=== PATIENT | male | born 1985 | race Caucasian/White ===

== ENCOUNTER 2019-08-24 15:55 | Outpatient (CLI) | payer OTHER ==
[2019-08-24 16:26] LABS: ALBUMIN 4.6 g/dL (3.2-5.5); ALBUMIN/GLOBULIN RATIO 1.7 (1.0-2.2); BILIRUBIN,TOTAL 1.2 mg/dL (0.2-1.0); CALCIUM 8.9 mg/dL (8.5-10.3); CREATININE 0.9 mg/dL (0.6-1.2); TOTAL PROTEIN 7.3 g/dL (6.7-8.2)
== END 2019-08-24 15:56 | disposition home or self-care (01) ==
LOC: LAB 15:55
PROVIDERS: ATTEND Surgery
DX: K85.10 Biliary acute pancreatitis without necrosis or infection (principal); Z01.812 Encounter for preprocedural laboratory examination
CPT/HCPCS: 36415; 80053

== ENCOUNTER 2019-08-25 07:46 | Day surgery (SDC) | payer OTHER ==
[~2019-08-25 07:46] MED LIST: CEFAZOLIN SODIUM IN 0.9 % NACL 2 GM/100 ML BAG IV ONE
[2019-08-25] MEDS ORDERED: LACTATED RINGERS 1,000 ML IV ONE ×2 (07:54→10:30)
--- NOTE | 2019-08-25 08:39 | ANESTHESIA ---
Pre-Anesthesia VS, & Labs - Diagnosis gallstone pancreatitis - Procedure laparoscopic cholecystectomy Vital Signs: Temp Pulse Resp BP Pulse Ox 36.2 C L 72 16 148/77 H 96 08/25/19 08:00 08/25/19 08:00 08/25/19 08:00 08/25/19 08:00 08/25/19 08:00 Height 5 ft 10 in Weight (kg) 92.8 kg Body Mass Index 29.0 - NPO >8 hours Home Medications and Allergies No Known Home Medications 08/08/19 Allergies/Adverse Reactions: Allergies Allergy/AdvReac Type Severity Reaction Status Date / Time No Known Drug Allergies Allergy Verified 08/25/19 08:00 Anes History & Medical History - Anesthetic History Anesthesia Complications: reports: No previous complications - Medical History Cardiovascular: reports: Murmur Pulmonary: reports: Sleep apnea (does not use cpap any more, improved since weight loss) Gastrointestinal: reports: Cholelithiasis Urinary: reports: None Neuro: reports: None Musculoskeletal: reports: None Endocrine/Autoimmune: reports: None Blood Disorders: reports: None Skin: reports: None Smoking Status: Never smoker - Surgical History Cardiothoracic: Angioplasty (valve angioplasty at [age] years old), Other Exam General: Alert Dental: WNL Mouth Opening: Greater than 4 Fingerbreadths Neck Mobility: Normal Mallampati classification: I Thyromental Distance: greater than 6 cm Cardiovascular: Regular rate, Normal S1, Normal S2 Mental/Cognitive Status: Alert/Oriented X3 Plan Anesthesia Type: General Consent for Procedure(s) Verified and Reviewed: Yes Code Status: Attempt Resuscitation ASA classification: 2-Mild systemic disease Is this case an emergency?: No
[2019-08-25] MEDS ORDERED: BUPIVACAINE 0.5% PF 10 ML VIAL ONE (08:41)
[2019-08-25] MEDS ORDERED: IOTHALAMATE MEGLUMINE 50 ML VIAL ONE (08:55)
[2019-08-25] MEDS ORDERED: GLYCOPYRROLATE 1 MG/5 ML VIAL IVP ONE (09:06)
[2019-08-25] MEDS ORDERED: ONDANSETRON 4 MG/2 ML VIAL IVP ONE (09:06)
[2019-08-25] MEDS ORDERED: NEOSTIGMINE 1 MG/1 ML 10 ML MDV IVP ONE (09:06)
[2019-08-25] MEDS ORDERED: KETOROLAC 30 MG/ML VIAL IVP ONE (09:06)
[2019-08-25] MEDS ORDERED: PROPOFOL 200 MG/20 ML VIAL IVP ONE (09:06)
[2019-08-25] MEDS ORDERED: DEXAMETHASONE 4 MG/ML VIAL IVP ONE (09:06)
[2019-08-25] MEDS ORDERED: fentaNYL 250 MCG/5 ML VIAL IVP ONE (09:06)
[2019-08-25] MEDS ORDERED: ROCURONIUM 50 MG/5 ML VIAL IVP ONE (09:06)
[2019-08-25] MEDS ORDERED: MIDAZOLAM 2 MG/2 ML VIAL IVP ONE (09:06)
[2019-08-25] MEDS ORDERED: BUPIVACAINE 0.5% PF 30 ML VIAL SUBQ ONE (09:34)
--- NOTE | 2019-08-25 11:09 | OPERATIVE REPORT ---
Operative Report - General Procedure Date: 08/25/19 Planned Procedure: Laparoscopic cholecystectomy possible intraoperative cholangiogram, possible common bile duct exploration, possible open cholecystectomy Pre-Op Diagnosis: Gallstone pancreatitis Procedure Performed: Laparoscopic cholecystectomy intraoperative cholangiogram could not be performed due to extremely small size of cystic duct Post Op Diagnosis: Same - Procedure Note Primary Surgeon: Josiah Copeland MD Anesthesia Provider: Miguel Angel Aggarwal CRNA Anesthesia Technique: General ET tube, Local IV Fluids (mL): 1,300 Estimated Blood Loss (mL): 20 Drain/Tube Type: Other (None.) Complications: None. - Other Other Information/Narrative: OPERATIVE DESCRIPTION/REPORT: After verbal and written informed consent was obtained detailing the risks of infection, bleeding requiring transfusion with its risks, nerve injury, and , as well as the possibility of a colostomy, and after I met with the patient confirming the surgery, the patient was brought to the operative suite and placed supine on the operating table. Great care was taken to avoid pressure points to prevent pressure necrosis or nerve injury. Monitoring devices were applied along with TEDs and pneumatic compressive stockings (to prevent DVT). The patient received preoperative antibiotics for surgical prophylaxis. Miguel Angel Aggarwal CRNA sedated and anesthetized the patient for the entire procedure. The patient was prepped and draped in the usual sterile manner. A "time in" then confirmed that the patient was identified with 3 identifiers (name, date and medical record number), the history and physical was in the chart, the signed consent confirming the procedure was in the chart, the patient was in the correct position, the aforementioned prophyl actic measures were in place or given, we had the correct personnel and equipment to complete the procedure and that anesthesia, surgery and nursing were given an opportunity to express any concerns. With the agreement of everyone in the room, we proceeded with the operation. The initial incision was at the umbilicus and dissection to the linea alba was completed using blunt dissection. The linea alba was grasped with a Autumn and incised. In a similar manner the peritoneum was grasped and incised using Metzenbaum scissors. In this location, a 12 mm blunt tipped, balloon tipped port was placed and the balloon was inflated to keep the port in position. The abdominal cavity was insufflated with carbon dioxide to steady-state pressure of 15 mmHg. Three additional 5 mm ports were placed in standard location for laparoscopic cholecystectomy (subxiphoid and 2 right subcostal) under direct vision of the 30 degree laparoscope and without incident. The patient was then placed in reverse Trendelenburg position and was rotated slightly to their left. The gallbladder wall was noted to be thickened and the gallbladder itself could not be grasped due to the fact that it was extraordinarily hard. I initially thought that this was due to bile and attempted to drain it with a laparoscopic needle but was only able to get out approximately 4 cc of light green-brown bile. Even with the removal of this bile, the gallbladder could not be grasped with Prestige graspers. I obtained toothed graspers that were finally able to grab a portion of the gallbladder wall and provide the necessary retraction. Also due to the distended and hard nature of the gallbladder it could not be flipped up over the liver to allow for the normal visualization. Extensive adhesions to the gallbladder and liver of the omentum also obscured by visualization. These were taken down in an avascular manner using Bovie electrocautery as well as laparoscopic scissors. Eventually, I identified the infundibulum, and this was then grasped and retracted inferior and laterally. Dissection was then begun in the angle of Calot. The cystic duct and (slightly medially and posteriorly) cystic artery were clearly identified. The critical view was obtained. There were 2 branches of the cystic artery going to the gallbladder one was tracking along with the cystic duct and once this artery was dissected free from the cystic duct it was clear that the cystic duct was less than 2 mm in size and would not allow placement of my cholangiocatheter. The third photograph taken shows the combined cystic artery and cystic duct in the critical view. The second was slightly posterior and medial to the cystic duct. Two clips proximally and one clip distally were used to control both the cystic duct and cystic arteries. The clips were carefully placed to avoid occluding the juncture with the common bile duct. Both the cystic duct and then the cystic artery were then transected with laparoscopic marianne. The gallbladder was then removed from its fossa in a retrograde fashion using electrocautery. Surprisingly, the gallbladder itself was quite extrahepatic with the only difficulty being again retraction of a very distended and hard gallbladder. With the 30 degree 5 mm scope in the subxiphoid position, the gallbladder was placed in an EndoCatch bag to be extracted through the 12 mm port site. I irrigated the right upper quadrant with a 3 L of warm sterile saline, and the area was aspirated dry. I inspected the gallbladder fossa and there was no bleeding or bile leak. Clips on the cystic duct and cystic artery appeared to be secure. I briefly visually explored the abdomen. There was no other evidence of overt pathology. I injected the port sites at the peritoneal, fascial, and skin levels under direct vision with 0.5% Marcaine. All ports and the EndoCatch containing the gallbladder were removed. Of note, the hard and distended gallbladder precluded simply removing this through the umbilical incision and the umbilical incision need to be made slightly larger at the skin and at the fascial level to allow for passage of the Endopouch containing the gallbladder. Following gallbladder removal, the remaining carbon dioxide was expelled from the abdomen. The fascia at the umbilicus was reapproximated using 2 [id number] 0 Vicryl sutures. The skin at each port site was approximated using a subcuticular 4-0 Monocryl. The surgical count of instruments, needles and sponges was reported as correct twice. Dermabond was applied. The patient was then awakened from an esthesia, extubated, and having tolerated the procedure well, was transported to the recovery room. No complications were encountered. A "time out" confirmed the operation performed, the fluids given, the estimated blood loss and anesthesia, surgery and nursing were given an opportunity to express any concerns. Dragon disclaimer: This document was created in part using voice recognition technology. Because of the inherent limitations of the system ([employer] user manual states that the licensee understands that speech recognition is a statistical process and that recognition errors are inherent in the process), occasional same sounding word substitutions and grammatical errors do occur and persist despite proofreading. Please read this document for context.
[2019-08-25] MEDS: fentaNYL 100 MCG/2 ML VIAL ONE ×2 (11:13→11:18)
[2019-08-25] MEDS ORDERED: ONDANSETRON 4 MG/2 ML VIAL IVP PRN (11:25)
[2019-08-25] MEDS ORDERED: HYDROmorphone 0.5 MG/0.5 ML SYRINGE IVP PRN (11:25)
[2019-08-25] MEDS ORDERED: HYDROcod/ACETAM 5/325 MG TABLET PO PRN (11:25)
[2019-08-25] MEDS ORDERED: HYDROcod/ACETAM 5/325 MG TABLET ONE (12:09)
[2019-08-25 12:43] VITALS: BP 129/81
== END 2019-08-25 07:47 | disposition home or self-care (01) ==
LOC: SDS 07:46
PROVIDERS: ATTEND Surgery
PROC: 0FT44ZZ Resection of Gallbladder, Percutaneous Endoscopic Approach (ICD-10-PCS; principal; 2019-08-25 08:45)
DX: K80.10 Calculus of gallbladder with chronic cholecystitis without obstruction (principal); K85.10 Biliary acute pancreatitis without necrosis or infection; K82.8 Other specified diseases of gallbladder; G47.30 Sleep apnea, unspecified; Z87.891 Personal history of nicotine dependence
CPT/HCPCS: 47562; A9270; C1758; J0690; J3010; J7120; Q9961

== ENCOUNTER 2020-06-26 09:09 | Emergency (ER) | payer OTHER ==
[2020-06-26 09:26] VITALS: BP 150/88
--- NOTE | 2020-06-26 09:38 | ED Physician Documentation ---
PD HPI LOWER EXT INJURY - Stated complaint Stated Complaint: RT FOOT INJURY - Chief complaint Chief Complaint: Trauma Ext - History obtained from History obtained from: Patient - History of Present Illness PD HPI LOW EXT INJURY LOCATION: Right, Foot, Toe Type of injury: Blunt / blow (He was chopping wood and dropped a block of wood on his foot last evening. Bruising and pain today. Difficulty putting his issue boots on) Where injury occurred: Home Timing - onset: Yesterday Timing - details: Abrupt onset, Still present Worsened by: Moving, Palpating Associated symptoms: Swelling, Discolored (bruising around base 4th toe and top of foot). 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 : None HEENT: None Psych: None Musculoskeletal: None Derm: None - Past Surgical History Past Surgical History: No Cardiovascular: Angioplasty, Other - Present Medications Home Medications: Ambulatory Orders Medication Instructions Recorded Confirmed Ibuprofen [Motrin] 600 mg PO TID PRN #25 tab 06/26/20 - Allergies Allergies/Adverse Reactions: Allergies Allergy/AdvReac Type Severity Reaction Status Date / Time No Known Drug Allergies Allergy Verified 06/26/20 09:26 - Social History Does the pt smoke?: No Smoking Status: Never smoker Does the pt drink ETOH?: Yes Does the pt have substance abuse?: No - Immunizations Immunizations are current?: Yes - POLST Patient has POLST: No POLST Status: Full Code PD ED PE NORMAL - Vitals Vital signs reviewed: Yes - General General: Alert and oriented X 3, No acute distress, Well developed/nourished - Derm Derm: Normal color, Warm and dry - Extremities Extremities: Other (The dorsum of the right foot near the fourth metatarsal and near the base of the toe at the MTP shows swelling and tenderness. He is able t o move his toe but it is uncomfortable. Normal color and capillary fill in the tip) - Neuro Neuro: Alert and oriented X 3, No motor deficit, Normal speech Results - Vitals Vitals: Vital Signs - 24 hr 06/26/20 09:23 Temperature 36.3 C L Heart Rate 64 Respiratory 18 Rate Blood Pressure 150/88 H O2 Saturation 98 Oxygen O2 Source Room air - Rads (name of study) foot xray Radiology: Prelim report reviewed (no fractures), See rad report PD MEDICAL DECISION MAKING - ED course Complexity details: considered differential (bruised foot/toe from dropped object. no fractures. His issue boots will not be comfortable though. ), d/w patient Departure - Departure Disposition: 01 Home, Self Care Clinical Impression: Foot contusion Qualifiers: Encounter type: initial encounter Laterality: right Qualified Code(s): S90.31XA - Contusion of right foot, initial encounter Condition: Stable Record reviewed to determine appropriate education?: Yes Instructions: ED Contusion Foot [facility] [place] [facility]] Prescriptions: Ibuprofen [Motrin] 600 mg PO TID PRN #25 tab PRN Reason: Pain Comments: No fractures on x-ray. The bruising will still be sore for several days. Use the orthopedic shoe to reduce motion through the midfoot. I wrote a note to not have to wear standard boots due to the discomfort. Use some anti- inflammatories 3 times a day for the next several days to a week. I would anticipate improvement over several days and resolution in 3 to 5 days. Forms: Activity restrictions Discharge Date/Time: 06/26/20 11:32
[2020-06-26] MEDS ORDERED: ACETAMINOPHEN 325 MG TABLET PO STA (09:59)
[2020-06-26] MEDS ORDERED: IBUPROFEN 600 MG TABLET PO STA (09:59)
--- NOTE | 2020-06-26 10:36 | XRAY Report ---
PROCEDURE: Toe(s) RT INDICATIONS: wood block dropped 4th toe TECHNIQUE: 3 views of the fourth toe(s) acquired. COMPARISON: None FINDINGS: Bones: No fractures or dislocations. No suspicious bony lesions. Soft tissues: No suspicious soft tissue densities. IMPRESSION: No acute fracture. No osseous lesion. If symptoms and/or clinical suspicion for pathology continue, f urther assessment with repeat plain films, or advanced imaging (e.g., CT, MRI, or bone scan) is recom mended for further assessment. Reviewed by: Michelle Lainez MD on 06/26/2020 10:35 AM PDT Approved by: Michelle Lainez MD on 06/26/2020 10:35 AM PDT Station ID: [id number]
== END 2020-06-26 11:32 | disposition home or self-care (01) ==
LOC: ED 09:09
DX: S90.31XA Contusion of right foot, initial encounter (principal); W20.8XXA Other cause of strike by thrown, projected or falling object, initial encounter; Y93.89 Activity, other specified; Y92.009 Unspecified place in unspecified non-institutional (private) residence as the place of occurrence of the external cause
CPT/HCPCS: 73660; 99282; 99283; A9270

== ENCOUNTER 2020-07-09 10:26 | Emergency (ER) | payer OTHER ==
--- NOTE | 2020-07-09 11:07 | ED Physician Documentation ---
PD HPI LOWER EXT INJURY - Stated complaint Stated Complaint: RT TOE SWELLING - Chief complaint Chief Complaint: Trauma Ext - History obtained from History obtained from: Patient - History of Present Illness PD HPI LOW EXT INJURY LOCATION: Right, Toe (4th) Type of injury: Blunt / blow Where injury occurred: Home Timing - onset: How many weeks ago (2) Timing - duration: Weeks Timing - details: Abrupt onset, Still present Improved by: Rest, Immobilization Worsened by: Moving, Palpating Associated symptoms: Swelling, Discolored. No: Weakness, Numbness Contributing factors: No: Anticoagulated Similar symptoms before: Diagnosis (toe contusion) Recently seen: Emergency Dept - Additional information Additional information: 35-year-old male was out chopping wood when he dropped a good-sized piece of wood onto his foot injuring his right fourth toe. He came to the emergency department and had x-rays done which did not demonstrate any evidence of a fracture. He was diagnosed with a contusion to the foot. He went out kayaking with his yesterday and today he has much worse pain and is not able to bear weight as easily as he was previously. 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 : None HEENT: None Psych: None Musculoskeletal: None Derm: None - Past Surgical History Past Surgical History: Yes General: Cholecystectomy Cardiovascular: Angioplasty, Other - Present Medications Home Medications: Ambulatory Orders Medication Instructions Recorded Confirmed Ibuprofen [Motrin] 600 mg PO TID PRN #25 tab 06/26/20 07/09/20 - Allergies Allergies/Adverse Reactions: Allergies Allergy/AdvReac Type Severity Reaction Status Date / Time No Known Drug Allergies Allergy Verified 07/09/20 10:33 - Social History Does the pt smoke?: No Smoking Status: Never smoker Does the pt drink ETOH?: Yes Does the pt have substance abuse?: No - Immunizations Immunizations are current?: Yes - POLST Patient has POLST: No POLST Status: Full Code PD ED PE NORMAL - General General: Alert and oriented X 3, No acute distress, Well developed/nourished - HEENT HEENT: Atraumatic, PERRL, EOMI - Respiratory Respiratory: No respiratory distress - Derm Derm: Normal color, Warm and dry, No rash - Extremities Extremities: Other (There is mild swelling and tenderness to the right 4th toe on the dorsal surface. The pain extends into the dorsum of the foot and the distal toe is not tender. No lymphangitic streaking. 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 No change from the last exam.), EMP read indepedently, See rad report PD MEDICAL DECISION MAKING - ED course Complexity details: reviewed old records, reviewed results, re-evaluated patient, considered differential, d/w patient ED course: 35-year-old male with a contusion to his right fourth toe had some initial improvement and now is having issue again with pain in his toe after going kayaking 3 days ago. He does have some erythema over the dorsum of the area but this area is nontender and the erythema does not spread from where it is. There is no lymphangitic streaking no swelling to the dorsum of the foot. I have asked the patient to be vigilant about infection and I suspect his increase in pain is simply related to excessive movement on an injured area. Departure - Departure Disposition: 01 Home, Self Care Clinical Impression: Foot contusion Qualifiers: Encounter type: initial encounter Laterality: right Qualified Code(s): S90.31XA - Contusion of right foot, initial encounter Instructions: ED Contusion Lower Ext Follow-Up: [facility] [Provider Group] Comments: Today there is no evidence of fracture on your x-ray. There is inflammation to the toe that hurts and there is concern for potential infection. Watch the area closely if you have increasing redness and swelling to the top of the foot or develop a streak up your leg return to the emergency department.
--- NOTE | 2020-07-09 11:24 | XRAY Report ---
PROCEDURE: Foot 3 View RT INDICATIONS: 4th toe injury worse TECHNIQUE: 3 views of the foot were acquired. COMPARISON: X-ray the fourth toe, 06/26/2020. FINDINGS: Bones: No fractures or dislocations. No suspicious bony lesions. Soft tissues: No tibiotalar joint effusion. Achilles tendon appears normal. IMPRESSION: No acute osseous abnormalities. No change from the last exam. Reviewed by: Leo Lowe MD on 07/09/2020 11:22 AM PDT Approved by: Leo Lowe MD on 07/09/2020 11:22 AM PDT Station ID: [id number]
[2020-07-09 12:20] VITALS: BP 149/99
== END 2020-07-09 12:26 | disposition home or self-care (01) ==
LOC: ED 10:26
DX: S90.31XA Contusion of right foot, initial encounter (principal); W22.8XXA Striking against or struck by other objects, initial encounter; Y93.89 Activity, other specified; Y92.009 Unspecified place in unspecified non-institutional (private) residence as the place of occurrence of the external cause
CPT/HCPCS: 99282; 99283